=== PATIENT | male | born 1990 | race American Indian/Alaskan Native ===

== ENCOUNTER 2021-12-19 22:59 | Emergency (ER) | payer MEDICAID, OTHER ==
[2021-12-19 23:52] LABS: ANION GAP 12.6 mEq/L (7-13); CHLORIDE,CL 101 mmol/L (98-107); SODIUM,NA 131 mmol/L (136-145)
[2021-12-20] MEDS ORDERED: Famotidine 20 MG Tab PO ONE (00:08)
[2021-12-20] MEDS ORDERED: Ondansetron 4 MG Tab.DIS PO ONE (00:08)
== END 2021-12-20 00:25 | disposition home or self-care (01) ==
LOC: DL.ED 22:59
DX: R07.89 Other chest pain (principal); F15.10 Other stimulant abuse, uncomplicated; R11.14 Bilious vomiting
CPT/HCPCS: 36415; 80053; 82150; 83605; 83690; 84484; 85025; 93005; 93010; 99284; 99285-25; A9270-GY

== ENCOUNTER 2022-01-11 19:54 | Emergency (ER) | payer MEDICAID ==
[2022-01-11 22:06] LABS: ANION GAP 14.8 mEq/L (7-13); CHLORIDE,CL 105 mmol/L (98-107); SODIUM,NA 139 mmol/L (136-145)
== END 2022-01-11 23:00 | disposition left against medical advice (07) ==
LOC: DL.ED 19:54
DX: R07.9 Chest pain, unspecified (principal); Z53.21 Procedure and treatment not carried out due to patient leaving prior to being seen by health care provider; I10 Essential (primary) hypertension; F17.210 Nicotine dependence, cigarettes, uncomplicated; Z91.030 Bee allergy status; Z79.899 Other long term (current) drug therapy
CPT/HCPCS: 36415; 80053; 80307; 82150; 83605; 83690; 84484; 85025; 85379; 93005; 99285-25

== ENCOUNTER 2022-03-10 00:22 | Emergency (ER) | payer MEDICAID ==
[2022-03-10 01:24] LABS: ANION GAP 13.8 mEq/L (7-13); CHLORIDE,CL 106 mmol/L (98-107); SODIUM,NA 141 mmol/L (136-145)
[2022-03-10 01:35] LABS: ESTIMATED GFR 116 mL/min (>=60)
[2022-03-10] MEDS ORDERED: Sodium Chloride 0.9% 1,000 ML IV ONE (01:47)
== END 2022-03-10 02:50 | disposition home or self-care (01) ==
LOC: DL.ED 00:22
DX: R55 Syncope and collapse (principal); E86.0 Dehydration; I10 Essential (primary) hypertension; F17.210 Nicotine dependence, cigarettes, uncomplicated; Z91.030 Bee allergy status; Z79.899 Other long term (current) drug therapy; Z79.84 Long term (current) use of oral hypoglycemic drugs; Z79.82 Long term (current) use of aspirin; Z90.49 Acquired absence of other specified parts of digestive tract
CPT/HCPCS: 36415; 80053; 80177; 83605; 84484; 85025; 93005; 93010; 96360; 99284; 99284-25; J7030

== ENCOUNTER 2022-06-15 23:30 | Emergency (ER) | payer MEDICAID | END 2022-06-16 00:23 | disposition left against medical advice (07) | LOC: DL.ED 23:30 | DX: Z53.21 Procedure and treatment not carried out due to patient leaving prior to being seen by health care provider (principal) ==